=== PATIENT | male | born 2005 | race Two or more races ===

== ENCOUNTER 2023-03-31 21:56 | Emergency (ER) | payer BC ==
[2023-03-31 22:32] VITALS: BP 112/76; PULSE 68
[2023-03-31] MEDS ORDERED: cefTRIAXone 1 GM Vial IM ONE (23:44)
[2023-03-31] MEDS ORDERED: Doxycycline Monohydrate 100 MG Cap PO ONE (23:45)
[2023-03-31] MEDS ORDERED: cefTRIAXone 1 GM, Lidocaine 1% 2.1 ML IM ONE ×2 (23:53)
== END 2023-04-01 00:21 | disposition home or self-care (01) ==
LOC: JD.ED 21:56
DX: I89.1 Lymphangitis (principal)
CPT/HCPCS: 96372; 99283; A9270; J0696; J3490